=== PATIENT | female | born 1945 | race Caucasian/White ===

== ENCOUNTER → 2016-11-28 | Outpatient (CLI) | payer MEDICARE, BC ==
[~2016-11-28] MED LIST: ACETAMINOPHEN325 MG PO; AMLODIPINE-BEN1 EAC5 PO; ASPIRIN EC325 MG PO; ESTRACE DPS PO; LIPITOR DPS20 MG PO; MIRALAX PACKET17 GM PO; OXY IR DPS5 MG PO; PROTONIX40 MG PO; SENOKOT S1 TAB PO; ULTRAM DPS50 MG PO
== END | disposition home or self-care (01) ==
LOC: RAD.S 09:23
DX: Z12.31 Encounter for screening mammogram for malignant neoplasm of breast (principal)